=== PATIENT | female | born 1990 | race American Indian/Alaskan Native ===

== ENCOUNTER 2019-10-11 18:34 | Inpatient (IN) | payer MEDICAID ==
[2019-10-11] MEDS ORDERED: fentaNYL 100 MCG/2 ML INJ IV PRN (19:07)
[2019-10-11] MEDS ORDERED: TERBUTALINE 1 MG/1 ML INJ SUB-Q PRN (19:07)
[2019-10-11] MEDS ORDERED: LIDOCAINE (2%) 20 MG/1 ML VIAL 20 ML MDV INFILTRATI ONE (19:07)
[2019-10-11] MEDS ORDERED: TERBUTALINE 1 MG/1 ML INJ IVP PRN (19:07)
[2019-10-11] MEDS ORDERED: MINERAL OIL 30 ML ORAL LIQD PO PRN (19:07)
[2019-10-11] MEDS ORDERED: ePHEDrine SULFATE 50 MG/1 ML INJ IV PRN (19:07)
[2019-10-11] MEDS ORDERED: AMPICILLIN/NS 2 GM/100 ML 2 GM/100 ML BAG IV ONE (19:07)
[2019-10-11 19:33] LABS: Hematocrit 38.4 % (30.3-42.9); Hemoglobin 12.8 gm/dl (10.1-14.3); Mean Corpuscular HGB Conc 33 % (30-34); Mean Corpuscular Volume 89 fl (79-97); Platelet Count 181 K/mm3 (140-440); Red Blood Count 4.31 M/mm3 (3.65-5.03); Red Cell Distribution Width 13.4 % (13.2-15.2)
--- NOTE | 2019-10-11 19:39 | History and Physical Report ---
History of Present Illness Date of examination: 10/11/19 Chief complaint: 40 WEEKS. LABOR, No PNC since 08/21/2019 History of present illness: Past History : 7 Term Births: 4 Premature Births: 1 Living Children: 5 Para: 5 Aborta: 1 Spont. Ab: 1 # 1 Delivery date: 2009 Weeks Gestation: 39 labor: no Delivery type: Anesthesia type: epidural Delivery location: [facility] Sex: Female weight: 7-1 # 2 Delivery date: 2011 Weeks Gestation: FT Delivery type: Anesthesia type: epidural Delivery location: [facility] Infant Sex: Female weight: 6-0 # 3 Delivery date: 2012 Weeks Gestation: 34 labor: yes Delivery type: Anesthesia type: epidural Delivery location: [facility] Sex: Male weight: 5-1 Comments: labor # 4 Delivery date: 2014 Weeks Gestation: ft labor: no Delivery type: Anesthesia type: epidural Delivery location: [facility] Sex: Female weight: 6- # 5 Delivery date: 2016 Weeks Gestation: ft labor: no Delivery type: Anesthesia type: epidural Delivery location: [facility] Infant Sex: Female weight: 6- Risk Factors: Smoked Tobacco Use: Never smoker Smokeless Tobacco Use: Never Passive smoke exposure: no Drug use: no HIV high-risk behavior: no Alcohol use: no Exercise: no Seatbelt use: 100 % Past Medical History: CF trait positive Past Surgical History: Negative Past Surgical History Past Medical History Surgery (Non-steward/stewardess second class): Negative Past Surgical History Abnormal PAP: positive ARJUN Exposure: negative Infertility: negative Uterine Anomaly: negative Uterine Surgery (not C/S): negative Other Gynecologic Problems: negative Medical History Comments: negative Family Hx: negative Social Hx: no e/t/d Infection History Hx of STD: none HIV Risk Eval: no Partner hx. of genital herpes: no Rash, Viral, or Febrile illness since last LMP? yes Varicella/Chicken Pox Status: Immunized Genetic History Congenital Heart Defect: Mom: no Dad: no Flores Disease: Mom: no Dad: no Thalassemia Mom: no Dad: no Neural Tube Defect Mom: no Dad: no Down's Syndrome Mom: no Dad: no Bam-Sachs Mom: no Dad: no Sickle Cell Disease/Trait Mom: no Dad: no Hemophilia Mom: no Dad: no Muscular Dystrophy Mom: no Dad: no Cystic Fibrosis Mom: no Dad: no [place] Chorea Mom: no Dad: no Mental Retardation Mom: no Dad: no Fragile X Mom: no Dad: no Other Genetic/Chromosomal Disorder Mom: no Dad: no Child w/other defect Mom: no Dad: no Enviromental Exposures Xray Exposure: no Medication, drug, or alcohol use since LMP: no Chemical/Other Exposure: no Exposure to Cat Liter: no Hx of Parvovirus (Fifth Disease): no Occupational Exposure to Children: none Active Medications (reviewed today): PNV () Current Allergies (reviewed today): No known allergies HBsAg Screen Negative Negative *1 RPR Non Reactive Non Reactive *2 Rubella Antibodies, IgG 5.79 index Immune >0.99 *3 Non-immune <0.90 Equivocal 0.90 - 0.99 Immune >0.99 ABO Grouping O *4 Rh Factor Positive *5 Please note: Prior records for this patient's ABO / Rh type are not available for additional verification. Antibody Screen Negative Negative *6 WBC 5.9 x10E3/uL 3.4-10.8 *7 RBC 4.07 x10E6/uL 3.77-5.28 *8 Hemoglobin 12.0 g/dL 11.1-15.9 *9 Hematocrit 36.6 % 34.0-46.6 *10 MCV 90 fL 79-97 *11 MCH 29.5 pg 26.6-33.0 *12 MCHC 32.8 g/dL 31.5-35.7 *13 RDW 13.2 % 12.3-15.4 *14 Platelets 250 x10E3/uL 150-450 *15 Neutrophils 70 % Not Estab. *16 Lymphs 21 % Not Estab. *17 Monocytes 8 % Not Estab. *18 Eos 1 % Not Estab. *19 Basos 0 % Not Estab. *20 ! Immature Cells <No Reported Value> *21 Neutrophils (Absolute) 4.2 x10E3/uL 1.4-7.0 *22 Lymphs (Absolute) 1.2 x10E3/uL 0.7-3.1 *23 Monocytes(Absolute) 0.5 x10E3/uL 0.1-0.9 *24 Eos (Absolute) 0.0 x10E3/uL 0.0-0.4 *25 Baso (Absolute) 0.0 x10E3/uL 0.0-0.2 *26 ! Immature Granulocytes 0 % Not Estab. *27 ! Immature Grans (Abs) 0.0 x10E3/uL 0.0-0.1 *28 ! NRBC <No Reported Value> *29 Hematology Comments: <No Reported Value> *30 Tests: (2) Panel 365094 (875444) HIV Screen 4th Generation wRfx Non Reactive Non Reactive *31 Tests: (3) HCV Ab w/Rflx to Verification (376671) ! HCV Ab <0.1 s/co ratio 0.0-0.9 *32 Tests: (4) Comment: (002980) ! Comment: SPRCS *33 Non reactive HCV antibody screen is consistent with no HCV infection, unless recent infection is suspected or other evidence exists to indicate HCV infection. Tests: (5) Urine Culture, Routine (230488) Urine Culture, Routine Final report *34 Tests: (6) Result ([id number]) ! Result 1 MUG *35 Mixed urogenital emily 10,000-25,000 colony forming units per mL Past History - Obstetrical History Expected Date of Delivery: 10/10/19 Actual Gestation: 40 Week(s) 1 Day(s) : 6 Medications and Allergies Allergies Allergy/AdvReac Type Severity Reaction Status Date / Time No Known Allergies Allergy Unverified 10/11/19 19:17 Active Meds: Active Medications Ephedrine Sulfate (Ephedrine Sulfate) 10 mg IV Q2M PRN PRN Reason: Hypotension Fentanyl (Sublimaze) 100 mcg IV Q2H PRN PRN Reason: Labor Pain Oxytocin/Sodium Chloride (Pitocin/Ns 20 Unit/1000ml Drip) 20 units in 1,000 mls @ 125 mls/hr IV DIRECT CAMILO Oxytocin/Sodium Chloride (Pitocin/Ns 30 Unit/500ml) 30 units in 500 mls @ 4 mls/hr IV TITR CAMILO; Protocol Lactated Ringer's (Lactated Ringers) 1,000 mls @ 125 mls/hr IV DIRECT CAMILO Ampicillin Sodium (Ampicillin/Ns 2 Gm/100 Ml) 2 gm in 100 mls @ 100 mls/hr IV ONCE ONE; Protocol Stop: 10/11/19 20:06 Ampicillin Sodium (Ampicillin/Ns 1 Gm/50 Ml) 1 gm in 50 mls @ 100 mls/hr IV Q4HR CAMILO; Protocol Lidocaine (Xylocaine 2%) 20 ml INFILTRATI ONCE ONE Stop: 10/11/19 19:08 Mineral Oil (Mineral Oil) 30 ml PO QHS PRN PRN Reason: Constipation Terbutaline Sulfate (Brethine) 0.25 mg SUB-Q ONCE PRN PRN Reason: Hyperstimulation/Hypertonicity Terbutaline Sulfate (Brethine) 0.25 mg IVP ONCE PRN PRN Reason: Hyperstimulation/Hypertonicity Review of Systems All systems: negative Genitourinary: contractions - Vital Signs Vital signs: Vital Signs Pulse Pulse Ox 88 99 10/11/19 18:48 10/11/19 18:48 Temp Pulse Resp BP Pulse Ox 98.1 F 74 18 116/56 99 10/11/19 18:50 10/11/19 19:19 10/11/19 18:50 10/11/19 18:50 10/11/19 19:19 - Physical Exam Lungs: Positive: Normal air movement Abdomen: Positive: other (obese) Genitourinary (Female): Positive: normal external genitalia, normal perenium (Patient gave permission to discuss all medical history with person in the room, she now states no h/o HSV) Vulva: both: normal Uterus: Positive: other (unable to palpate) Anus/Rectum: Positive: normal perianal skin - Obstetrical FHR comments: Unable to maintain continuous fht's, decision to AROM made, minimal fluid, ISE placed however did not function, external monitors replace, however patient unable to stay still to monitor well Uterine Contraction Monitor Mode: External Cervical Dilatation: 7 Cervical Effacement Percentage: 100 station: 0 Uterine Contraction Pattern: Regular Results All other labs normal. Assessment and Plan - Patient Problems (1) 40 weeks gestation of Current Visit: Yes Status: Acute (2) Active labor at term Current Visit: Yes Status: Acute
[2019-10-11] MEDS: OXYTOCIN 20 UNIT/1000ML DRIP 20 UNITS/1,000 ML BAG IV SCH ×2 (19:44→21:23)
[2019-10-11] MEDS ORDERED: miSOPROStol 200 MCG TAB ONE (19:44)
[2019-10-11] MEDS ORDERED: CARBOPROST TROMETHAMINE 250 MCG/1 ML INJ IM ONE (19:51)
[2019-10-11] MEDS ORDERED: METHYLERGONOVINE MALEATE 0.2 MG/ML VIAL IM ONE ×2 (19:51→20:12)
[2019-10-11] MEDS ORDERED: OXYTOCIN 10 UNIT/1 ML INJ ONE (19:51)
[2019-10-11] MEDS ORDERED: KETOROLAC 30 MG/1 ML INJ ONE (19:52)
[2019-10-11] MEDS ORDERED: OXYTOCIN DRIP 30 UNITS/500 ML BAG IV SCH (20:00)
[2019-10-11] MEDS ORDERED: LACTATED RINGERS 1,000 ML IV SCH (20:00)
--- NOTE | 2019-10-11 20:05 | Procedure Note ---
OB Delivery Note - Delivery Date of Delivery: 10/11/19 Surgeon: MARIVEL RYAN Estimated blood loss: 200cc - Vaginal Delivery presentation: vertex Delivery position: OA Intrapartum events: precipitous labor- <3hr Delivery induction: none Delivery augmentation: rupture of membranes Delivery monitor: external FHT, external uterine Route of delivery: Delivery placenta: spontaneous (intact) Episiotomy: none Delivery laceration: none Anesthesia: none - Infant A at 1 minute: 8 at 5 minutes: 7 (weight nto available) Infant Gender: Male
[2019-10-11] MEDS ORDERED: KETOROLAC 30 MG/1 ML INJ IV ONE (20:12)
[2019-10-11] MEDS ORDERED: WITCH HAZEL/ GLYCERIN PAD TP PRN (22:36)
[2019-10-11] MEDS ORDERED: LANOLIN/ZINC/DIMETHICONE (LANSINOH) 7 GM TP PRN (22:36)
[2019-10-11] MEDS ORDERED: PROMETHAZINE 25 MG TAB PO PRN (22:36)
[2019-10-11] MEDS ORDERED: MAGNESIUM HYDROXIDE (MOM) ORAL LIQD UDC PO PRN (22:36)
[2019-10-11] MEDS ORDERED: PROMETHAZINE 25 MG RECT SUPP PR PRN (22:36)
[2019-10-11] MEDS ORDERED: ACETAMINOPHEN 325 MG TAB PO PRN (22:36)
[2019-10-11] MEDS ORDERED: diphenhydrAMINE 25 MG CAP PO PRN (22:36)
[2019-10-11] MEDS ORDERED: ONDANSETRON 4 MG/2 ML INJ IV PRN (22:36)
[2019-10-11] MEDS: IBUPROFEN 600 MG TAB PO SCH (22:55)
[2019-10-11] MEDS ORDERED: AMPICILLIN/NS 1 GM/50 ML 1 GM/50 ML BAG IV SCH (23:20)
[2019-10-12] MEDS: IBUPROFEN 600 MG TAB PO SCH ×3 (08:54→23:52)
--- NOTE | 2019-10-12 09:51 | Progress Note ---
Assessment and Plan A: 29 y.o. s/p P: Continue with care Subjective - Subjective Date of service: 10/12/19 (Pt states doing well.) Patient reports: appetite normal, voiding normally, pain well controlled, ambulating normally : doing well Objective - Vital Signs Latest vital signs: Vital Signs Temp Pulse Resp BP BP Pulse Ox 10/12/19 08:54 20 10/12/19 08:39 97.5 F L 73 18 102/61 99 10/12/19 06:42 98.1 F 70 18 103/56 98 10/12/19 01:37 98.0 F 78 18 106/57 96 10/11/19 22:05 65 99 10/11/19 22:01 98.2 F 61 20 123/68 10/11/19 21:28 68 98 10/11/19 21:23 72 120/71 99 10/11/19 21:18 76 100 10/11/19 21:13 70 100 10/11/19 21:08 73 97 10/11/19 21:07 76 94 10/11/19 21:03 71 97 10/11/19 20:58 63 99 10/11/19 20:53 72 122/71 100 10/11/19 20:48 68 99 10/11/19 20:43 66 100 10/11/19 20:39 71 117/71 10/11/19 20:38 70 100 10/11/19 20:27 67 100 10/11/19 20:23 78 108/58 10/11/19 20:22 75 100 10/11/19 20:17 68 100 10/11/19 20:12 78 100 10/11/19 20:08 97.9 F 75 111/57 10/11/19 20:07 77 100 10/11/19 20:02 83 100 10/11/19 19:57 78 100 10/11/19 19:53 77 111/55 10/11/19 19:52 80 100 10/11/19 19:36 84 99 10/11/19 19:30 80 99 10/11/19 19:24 89 100 10/11/19 19:19 74 99 10/11/19 19:18 81 93 10/11/19 19:14 84 97 10/11/19 19:09 87 97 10/11/19 18:53 87 95 10/11/19 18:50 98.1 F 75 18 116/56 116/56 100 10/11/19 18:48 88 99 Intake and Output 10/11/19 10/12/19 10/12/19 22:59 06:59 14:59 Intake Total 10 360 Output Total 75 300 Balance -65 60 Intake: IV 10 Left Hand 10 Intake, Free Water 360 Output: Urine 75 300 Void 75 300 Other: Total, Output Amount 75 300 # Voids Void 1 Weight 275 lb Estimated Blood Loss 200 - Exam Breasts: Present: deferred Cardiovascular: Present: Regular rate, Normal S1, Normal S2 Lungs: Present: Clear to auscultation Abdomen: Present: normal appearance, soft, normal bowel sounds Vulva: both: normal Uterus: Present: normal, firm, fundal height at umbilicus Extremities: Present: normal Deep Tendon Reflex Grade: Normal +2 Comments: Moderate lochia rubra noted.
[2019-10-12] MEDS ORDERED: FLU VACC QUAD 2019-20 (3 YR UP)/PF 60 MCG/0.5 ML SYRINGE IM ONE (12:00)
[2019-10-12 13:21] LABS: Hematocrit 32.8 % (30.3-42.9); Hemoglobin 11.1 gm/dl (10.1-14.3)
[2019-10-13 01:03] LABS: Amphetamine Screen,Urine PRESUMPTIVE NEGATIVE; Benzodiazepines Screen,Urine PRESUMPTIVE NEGATIVE; Cannabinoid Screen,Urine PRESUMPTIVE NEGATIVE; Cocaine Screen,Urine PRESUMPTIVE NEGATIVE; Methadone Screen,Urine PRESUMPTIVE NEGATIVE; Opiate Screen,Urine PRESUMPTIVE NEGATIVE
[2019-10-13] MEDS ORDERED: TETANUS,DIPH,PERTUSS(ACELL) VACCINE 0.5 ML SYRINGE IM ONE (06:00)
[2019-10-13] MEDS: IBUPROFEN 600 MG TAB PO SCH ×3 (06:32→18:25)
--- NOTE | 2019-10-13 08:21 | Discharge Summary ---
Providers - Providers Date of Admission: 10/11/19 19:08 Date of discharge: 10/13/19 (agrees to d/c home today) Attending physician: MARIVEL RYAN 10/11/19 22:36 Consult to Wet Process Assistant Head Miller [CONS] Routine Reason For Exam: assistance with , SNS Primary care physician: MARIVEL RYAN Hospitalization Reason for admission: Labor Condition: Good Pertinent studies: H&H 11.1/32.8 Procedures: Hospital course: uncomplicated and course Disposition: DC-01 TO HOME OR SELFCARE - Discharge Diagnoses (1) (normal spontaneous vaginal delivery) Status: Acute Core Measure Documentation - Palliative Care Palliative Care/ Comfort Measures: Not Applicable - Core Measures Any of the following diagnoses?: none Exam - Constitutional Vitals: Temp Pulse Resp BP Pulse Ox 97.9 F 72 18 105/64 97 10/13/19 00:27 10/13/19 00:27 10/13/19 00:27 10/13/19 00:27 10/13/19 00:27 General appearance: Present: no acute distress, well-nourished - EENT Eyes: Present: PERRL ENT: hearing intact, clear oral mucosa - Neck Neck: Present: supple, normal ROM - Respiratory Respiratory effort: normal Respiratory: bilateral: CTA - Cardiovascular Rhythm: regular - Extremities Extremities: pulses symmetrical, No edema - Abdominal General gastrointestinal: Present: soft, non-tender, non-distended, normal bowel sounds Female genitourinary: Present: normal - Integumentary Integumentary: Present: clear, warm, dry - Musculoskeletal Musculoskeletal: gait normal, strength equal bilaterally - Psychiatric Psychiatric: appropriate mood/affect, intact judgment & insight - Neurologic Neurologic: CNII-XII intact, moves all extremities - Additional findings Additional findings: lochia scant, fundus firm Plan Activity: no restrictions Diet: regular Follow up with: MARIVEL RYAN MD [Primary Care Provider] - 7 Days (Congratulations! Please call [phone] to schedule your son's circumcision in 1 week and your appointment in 4 weeks. Bring EMLA cream to your son's visit and await further teaching. ) Prescriptions: Lidocain2.5%/Prilocai2.5% [Emla] 5 gm TP ONCE #1 tube
[2019-10-13 17:12] VITALS: BP 119/71
== END 2019-10-13 22:47 | disposition home or self-care (01) | DRG 775 ==
LOC: TRG 18:34 → LD 19:08 → OB 22:33
PROVIDERS: ADMIT Obstetrics & Gynecology; ATTEND Obstetrics & Gynecology
PROC: 10E0XZZ Delivery of Products of Conception, External Approach (ICD-10-PCS; principal; 2019-10-11)
PROC: 3E0234Z Introduction of Serum, Toxoid and Vaccine into Muscle, Percutaneous Approach (ICD-10-PCS; 2019-10-13)
DX: O62.3 Precipitate labor (principal); Z3A.40 40 weeks gestation of pregnancy; Z37.0 Single live birth; Z23 Encounter for immunization
CPT/HCPCS: 36415; 59025; 80307; 85014; 85018; 85027; 86592; 86850; 86900; 86901; 87806; 90686; G0378; J0290; J1885; J2210; J2590; J7120